=== PATIENT | female | born 1990 | race Caucasian/White ===

== ENCOUNTER → 2017-01-24 | Outpatient (CLI) | payer OTHER ==
[~2017-01-24] MED LIST: CEPH500C OR; FLEXERIL PO; IBUP1TAB7 PO; METO10TA2 OR; PERC5TAB12 PO; VICO5TAB OR
[2017-01-24 14:18] LABS: CONTROL LINE HCG INT CTR LINE PRESENT
== END ==
LOC: M SMT 10:40
PROVIDERS: ATTEND Obstetrics & Gynecology
DX: N91.4 Secondary oligomenorrhea (principal)